=== PATIENT | male | born 1945 | race African-American/Black ===

== ENCOUNTER 2019-10-15 15:38 | Outpatient (CLI) | payer MEDICARE, SELFPAY ==
--- NOTE | ~2019-10-15 | XR_ITS ---
EXAMINATION: XR abdomen/kub 1V DATE: 10/15/2019 16:03 INDICATION: Gross hematuria. Abdominal pressure for 3 months. TECHNIQUE: AP view COMPARISON: None FINDINGS: There are right atrial and right ventricular leads. 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 There is a moderately prominent amount of feces in the colon; no evidence of obstruction. The psoas shadows are intact. No visceromegaly. No significant abnormal calcification. The lung bases are clear. Normal heart size. IMPRESSION: Nonspecific abdomen Reviewed, dictated and finalized at [facility]. Reviewed, dictated and finalized at [facility]. IMPRESSION: Nonspecific abdomen
--- NOTE | ~2019-10-15 | CT_ITS ---
EXAMINATION: CT abdomen pelvis wo/w con DATE: 10/15/2019 16:52 INDICATION: Gross hematuria. TECHNIQUE: Computed tomography (CT) of the abdomen and pelvis was performed without and with intraven ous contrast using a total of 130 mL Omnipaque-350 intravenous contrast with a double-bolus technique for simultaneous opacification of the renal parenchyma and renal collecting system. Automated exposu re control and iterative reconstruction technique were employed. The dose-length product was 2344.01 mGy-cm. COMPARISON: CT abdomen and pelvis 06/20/2008 FINDINGS: The visualized portions of the lung bases demonstrate mild atelectasis. There are chronic 6 mm and 5 mm nodules in right middle lobe, likely benign. A calcified left lung nodule and calcified left hilar lymph nodes are consistent with old granulomatous disease. No pleural effusion. The heart size is no rmal. No pericardial effusion. There are pacer wires in right atrium and right ventricle. There are n umerous cysts in the liver measuring up to 5.2 cm. The gallbladder is normal. Calcifications in the s pleen are consistent with old granulomatous disease. The pancreas and adrenal glands are normal. Ther e are cysts in the kidneys measuring up to 11 mm on the left. There is a 2.1 cm hemorrhagic cyst in l eft kidney. There is no urolithiasis. The ureters are well opacified and are normal. The bladder is n ot well distended. The prostate is severely enlarged. There are no dilated loops of bowel. The append ix is normal. There are no pathologically enlarged lymph nodes. There is no free intraperitoneal flui d. There is a chronic calcified mass in left inguinal canal, likely benign. There is severe lumbar sp ondylosis. IMPRESSION: 1. No etiology for hematuria. Reviewed, dictated and finalized at [facility].
[2019-10-15 16:27] LABS: Estimated Glomerular Filt Rate > 60
== END 2019-10-15 15:39 | disposition home or self-care (01) ==
PROVIDERS: Visit Provider Nurse Practitioner Adult Health
DX: R31.0 Gross hematuria (principal)
CPT/HCPCS: 36415; 74018; 74178; Q9967